=== PATIENT | male | born 1945 | race Caucasian/White ===

== ENCOUNTER 2020-03-31 06:36 | Day surgery (SDC) | payer OTHER ==
[2020-03-30 09:53] VITALS: BMI 43.5
[2020-03-31] MEDS: TROPICAMIDE 1% OPHTH SOLN 15 ML BOTTLE ONE ×2 (06:55→07:11)
[2020-03-31] MEDS: CIPROFLOXACIN HCL 0.3% OPHTH 2.5ML BOTTLE ONE ×2 (06:55→07:10)
[2020-03-31] MEDS: DICLOFENAC SODIUM 0.1% OPHTHALMIC 2.5ML BOTTLE ONE ×2 (06:55→07:11)
[2020-03-31] MEDS ORDERED: CHONDROITIN SU A/HYALUR SOD 1 KIT ONE (07:06)
[2020-03-31] MEDS ORDERED: ACETAMINOPHEN 325 MG TABLET (FP) PO PRN (07:13)
[2020-03-31] MEDS ORDERED: CIPROFLOXACIN HCL 0.3% OPHTH 2.5ML BOTTLE OP SCH (07:15)
[2020-03-31] MEDS ORDERED: PHENYLEPHRINE 2.5% OPHTH SOLN 15 ML BOTTLE OP SCH (07:15)
[2020-03-31] MEDS ORDERED: KETOROLAC TROMETHAMINE 0.5% EYE DROP 1 DROP DROPS OP SCH (07:15)
[2020-03-31] MEDS ORDERED: TROPICAMIDE 1% OPHTH SOLN 15 ML BOTTLE OP SCH (07:15)
--- NOTE | 2020-03-31 07:19 | HP ---
History & Physical Update - History History: No Change - Physical Physical: No Change - Assessment Assessment: No Change - Plan Plan: No Change
--- NOTE | 2020-03-31 07:19 | HP ---
- Patient Scheduled date of Surgery: 03/31/20 Scheduled Surgical Procedure: Phacoemulsification and cataract extraction with PCIOL Affected Eye: Left Chief Complaint (Indication for surgery): Decreased vision affecting ADLs - Ocular History Other Eye History: Other (PVD OD and RAGHAV) Eye Medications: vigamox 0/3,prolensa 0/1 Previous Eye Surgery: s/p ce/pciol OD - Medical History Illnesses: Cardiac Disorders (Chest pain, SOB, [place], Valve disease) (s/p stent x 4), Hypertension, Hypercholesterolemia, Diabetes Current Medications: Ambulatory Orders Clopidogrel Bisulfate [Plavix] 75 mg PO DAILY 03/30/20 Furosemide [Lasix -] 40 mg PO BID 03/30/20 Glipizide [Glipizide ER] 10 mg PO DAILY 03/30/20 Metformin HCl [Glucophage] 1,000 mg PO BID 03/30/20 Metoprolol Succinate [Toprol Xl -] 25 mg PO BID 03/30/20 Pioglitazone HCl [Actos] 30 mg PO DAILY 03/30/20 Ramipril [Altace] 10 mg PO DAILY 03/30/20 Rosuvastatin Calcium [Crestor] 40 mg PO DAILY 03/30/20 Allergies/Adverse Reactions: Allergies Allergy/AdvReac Type Severity Reaction Status Date / Time No Known Allergies Allergy Verified 03/31/20 07:05 Ocular Examination - Best Corrected Visual Acuity Distance: Right eye: 20/30- Distance: Left eye: 20/40 - External/Slit Lamp Examination Abnormalities: dermatochalasis - Intraocular Pressure Intraocular Pressure - Right eye: 17 Intraocular Pressure-Left eye: 17 - Lens Lens: 2+ NS 2+ cortical - Vitreous/Retina Vitreous/Retina: C:D 0.3 m/v/p wnl - Special Examination M - Right eye: +0.50-1.50 x 105 M - Left eye: +2.25 -0.75 x 090 K - Right eye: 43.25/47.25 x 58 K - Left eye: 45.25/45.50 x 034 AL - Right eye: 22.98 AL - Left eye: 22.72 IOL bag: +22.0 AUOOTO IOL sulcus: +21.0 MN60AC IOL AC: +19.0 MTA 4uo - Impression Impression: Cataract Left Eye - Plan Plan: Phacoemulsification and cataract extraction - IOL Left eye Post-hospital care will be provided in office on: 04/01/20
[2020-03-31] MEDS ORDERED: EPINEPHrine/PF 1 MG/1 ML (1:1,000) AMPULE ONE (07:20)
[2020-03-31] MEDS ORDERED: POVIDONE-IODINE 5% OPHTHALMIC PREP 30 ML SOLUTION ONE (07:20)
[2020-03-31] MEDS ORDERED: TETRACAINE 0.5% OPHTH SOLN 2 ML BOTTLE ONE (07:20)
[2020-03-31] MEDS ORDERED: LIDOCAINE HCL/PF 1% SDV 5ML VIAL ONE (07:20)
[2020-03-31] MEDS ORDERED: BSS (NA/CA/MG/K) BALANCED SALT SOLUTION OPHTH SOLN 15 ML BOTTLE ONE (07:20)
[2020-03-31] MEDS ORDERED: TOBRAMYCIN/DEXAMETHASONE OPHTH. OINTMENT 1 TUBE ONE (07:20)
[2020-03-31] MEDS ORDERED: MIDAZOLAM HCL 2 MG/2 ML SINGLE DOSE VIAL ONE (08:35)
[2020-03-31] MEDS ORDERED: POVIDONE-IODINE 5% OPHTHALMIC PREP 30 ML SOLUTION OS ONE (08:58)
[2020-03-31] MEDS ORDERED: TETRACAINE 0.5% HCL 0.6ML DROPPER.BOTTLE TP ONE (08:58)
[2020-03-31] MEDS ORDERED: CHONDROITIN SU A/HYALUR SOD 1 KIT IO ONE (09:07)
[2020-03-31] MEDS ORDERED: LIDOCAINE HCL 1% PRESERVATIVE FREE - 30ML VIAL IO ONE (09:07)
[2020-03-31] MEDS ORDERED: EPINEPHrine/PF 1 MG/1 ML (1:1,000) AMPULE SQ ONE (09:07)
[2020-03-31] MEDS ORDERED: BSS (NA/CA/MG/K) BALANCED SALT SOLUTION OPHTH SOLN 15 ML BOTTLE OS ONE (09:15)
[2020-03-31] MEDS ORDERED: TOBRA 0.3%/DEXAMETH 0.1% OPHTHALMIC SUSP 2.5 ML BTL OS ONE (09:23)
--- NOTE | 2020-03-31 09:31 | OP ---
Ophthalmology Operative Note Pre-Operative Diagnosis: Cataract Affected Eye: Left Operation: Phacoemulsification and cataract extraction with PCIOL Findings: Ns cataract left eye Post-Operative Diagnosis: Same as Pre-op Assembler Handbags: None Anesthesiologist: Carlos Miller Anesthesia: Topical Specimens Removed: none Estimated blood loss: < 1cc Drains & Tubes with Location: none Operative Report Dictated: Yes
[2020-03-31] MEDS ORDERED: ONDANSETRON 4 MG/2 ML VIAL IVPUSH PRN (10:21)
[2020-03-31 10:29] VITALS: BP 117/56; PULSE 70; TEMP 98.4
[2020-03-31] MEDS ORDERED: LACTATED RINGERS SOLUTION 1,000 ML IV SCH (10:30)
--- NOTE | 2020-03-31 16:48 | OP ---
DATE OF OPERATION: 03/31/2020 PREOPERATIVE DIAGNOSIS: Nuclear sclerotic cataract left eye. POSTOPERATIVE DIAGNOSIS: Nuclear sclerotic cataract left eye. PROCEDURE: Phacoemulsification and cataract extraction with insertion of posterior chamber intraocular lens left eye. SURGEON: Abhishek Glez MD. FRENCH FOLDING MACHINE OPERATOR: None. ANESTHESIA: Topical. ANESTHESIOLOGIST: Carlos Miller CRNA OPERATIVE PROCEDURE: The patient received Tetracaine eye drops and was gently sedated and prepped and draped in the usual sterile fashion so as to expose only the left eye. Ophthalmic Betadine was instilled into the inferior fornix and lashes were taped out of the surgical field. An eyelid speculum was placed into the left eye. Paracentesis was made in inferior temporal clear cornea at the limbus. Then 0.5 mL of nonpreserved lidocaine 1% was injected into the anterior chamber and then 1 mL of dilute epinephrine 1:10,000 was injected into the anterior chamber to improve pupillary dilation. Viscoelastic material was instilled into the anterior chamber via the paracentesis. A 2.4-mm keratome blade was then used to create the main incision in temporal clear cornea at the limbus. A continuous curvilinear capsulorrhexis was performed using a cystotome and Utrata forceps. Hydrodissection of the lens cortex was performed using BSS on a cannula until the nucleus was noted to be freely rotating. The phacoemulsification tip was then inserted via the main wound and used to scope 2 perpendicular grooves into the lens nucleus. The nucleus was cracked into 4 quadrants. Each quadrant was lifted out of the capsule into the iris plane and individually phacoemulsified. The remaining cortical material was then aspirated using the irrigation/aspiration port. The capsular bag was inflated using ProVisc and a preloaded AcrySof lens model [id number] power +22.0 diopters was injected into the capsular bag. It was centered using a Sinskey hook. The residual viscoelastic material was removed from the anterior chamber using irrigation and aspiration. The wound edges were hydrated using BSS. The wound was tested for leakage and was found to be watertight. Tobradex ointment was placed in the eye, and the speculum was removed from the eye, and the eyelid was closed. A sterile dressing and shield were placed over the eye. The patient was transferred to the recovery room in stable condition, told to follow up in 1 day. ABHISHEK TRUJILLO M.D. [place]/[id number]
== END 2020-03-31 10:30 | disposition home or self-care (01) ==
LOC: JASU-SURG 06:36
PROVIDERS: ATTEND Ophthalmology
PROC: 08RK3JZ Replacement of Left Lens with Synthetic Substitute, Percutaneous Approach (ICD-10-PCS; principal; 2020-03-31 08:30)
DX: H25.12 Age-related nuclear cataract, left eye (principal)
CPT/HCPCS: 82962

== ENCOUNTER 2020-09-27 14:26 | Emergency (ER) | payer OTHER | END 2020-09-27 15:16 | disposition home or self-care (01) | LOC: JVIRT 14:26 | DX: U07.1 COVID-19 (principal) | CPT/HCPCS: C9803; G2251-GT; Q3014-GT; U0003 ==